=== PATIENT | female | born 1970 ===

== ENCOUNTER 2016-12-11 16:26 | Observation (INO) | payer BC ==
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
[2016-12-11 18:17] LABS: SQUAMOUS EPITHIAL 24 /hpf (0-5); URINE BACTERIA RARE (<OCC); URINE BILIRUBIN NEGATIVE (NEGATIVE); URINE BLOOD LARGE (NEGATIVE); URINE CLARITY CLOUDY (Clear); URINE COLOR YELLOW (YELLOW); URINE GLUCOSE (UA) NEG (Normal); URINE LEUKOCYTE ESTERASE TRACE Leu/uL (Negative); URINE NITRATE NEGATIVE (NEGATIVE); URINE PROTEIN 30 mg/dL (NEGATIVE); URINE UROBILINOGEN 0.2-1.0 mg/dL (0.2-1.0)
--- NOTE | 2016-12-11 18:48 | MRI ---
PROCEDURE: MRI Right Knee HISTORY: Pain. Right knee injury COMPARISON: No prior similar study available for comparison. TECHNIQUE: Multiecho multiplanar sequences were performed through the right knee. FINDINGS: ANTERIOR CRUCIATE LIGAMENT:: [id number] increased signal seen at the mid and femoral attachment of the ACL suggestive of [id number] sprain. POSTERIOR CRUCIATE LIGAMENT:: Intact. MEDIAL MENISCUS:: No evidence of significant tear. LATERAL MENISCUS:: There is complex tear involving the body and posterior horn of the lateral meniscus PE MEDIAL COLLATERAL LIGAMENT:: Mild grade 1 sprain of the MCL LATERAL COLLATERAL LIGAMENT COMPLEX:: Moderate grade 2-3 sprain of the LCL QUADRICEPS TENDON:: Intact. PATELLAR TENDON:: Intact. 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 There are moderate to large size foci of cartilage defects seen at the right knee more prominent at the medial and lateral femoral condyle P JOINT FLUID:: There is a moderate amount of right knee joint effusion. OSSEOUS STRUCTURES:: No evidence of bone marrow edema or bony lesion. Marginal osteophyte formation seen at the patella and in the femoral and tibial plateau suggestive of moderate osteoarthritis. OTHER FINDINGS: None. IMPRESSION: Mild ACL sprain. Moderate to large size lateral meniscus tear. Moderate amount of joint effusion. Moderate osteoarthritic changes. Patellar chondromalacia and multiple foci of cartilage defects likely due to a combination of prior trauma and osteoarthritis.
--- NOTE | 2016-12-11 19:32 | US ---
EXAM: US Duplex Right Lower Extremity Veins CLINICAL HISTORY: 46 years old, female; Pain; Leg, lower; Right; Additional info: Knee injury/brusing pain TECHNIQUE: Real-time ultrasound scan of the veins of the right lower extremity with color Doppler flow, spectral waveform analysis and compression. COMPARISON: No relevant prior studies available. FINDINGS: Real-time imaging shows veins with normal compressibility. Doppler evaluation shows normal venous flow with respiratory variation and augmentation with distal compression. Complex appearing fluid collection noted laterally at level of the knee measuring 3.9 x 2.3 cm. IMPRESSION: No evidence for deep venous thrombosis in the visualized veins. Complex appearing fluid collection noted laterally at level of the knee measuring 3.9 x 2.3 cm. Correlate clinically. Followup as warranted.
[2016-12-11 19:54] LABS: BASO % 0.9 % (0.0-2.0); EOS # 0.1 K/uL (0.0-0.7); EOS % 1.7 % (0.0-4.0); HEMOGLOBIN 13.6 g/dL (12.0-16.0); LYMPH # 1.2 K/uL (1.0-4.3); LYMPH % 25.2 % (20.0-40.0); MEAN CELL VOLUME 81.2 fl (81.0-99.0); MEAN CORPUSCULAR HEMOGLOBIN 25.7 pg (27.0-31.0); MEAN CORPUSCULAR HGB CONC 31.6 g/dL (33.0-37.0); MONO # 0.3 K/uL (0.0-0.8); MONO % 6.3 % (0.0-10.0); NEUT # 3.3 K/uL (1.8-7.0); NEUT % 65.9 % (50.0-75.0); RBC 5.28 Mil/uL (3.80-5.20); WHITE BLOOD COUNT 4.9 K/uL (4.8-10.8)
[2016-12-11 20:18] LABS: ALB/GLOB RATIO 1.3 (1.0-2.1); ALBUMIN 4.1 g/dL (3.5-5.0); ALT/SGPT 37 U/L (9-52); AST/SGOT 27 U/L (14-36); BLOOD UREA NITROGEN 15 mg/dl (7-17); CALCIUM 9.3 mg/dL (8.4-10.2); GFR AFRICAN-AMERICAN > 60; GFR NON-AFRICAN AMERICAN > 60
[2016-12-11 20:22] LABS: INR 1.2 (0.9-1.2); PARTIAL THROMBOPLASTIN TIME 35.5 Seconds (25.6-37.1); PROTHROMBIN TIME 12.4 Seconds (9.8-13.1)
[2016-12-11] MEDS ORDERED: Enoxaparin 40 mg Syringe SC ONE (22:00)
[2016-12-12 00:44] VITALS: O2SAT 98
[2016-12-12 08:30] VITALS: BP 134/83; PULSE 55; RESP 18; TEMP 97.8
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
[2016-12-12 13:46] LABS: FOLATE 9.4 ng/mL
== END 2016-12-12 13:12 | disposition home or self-care (01) ==
LOC: H.ER 16:26 → H.ERHOLD 17:27 → H.MEDSURG1 20:40
PROVIDERS: ADMIT Internal Medicine; ATTEND Internal Medicine
DX: S83.281A Other tear of lateral meniscus, current injury, right knee, initial encounter (principal); X58.XXXA Exposure to other specified factors, initial encounter; Y93.9 Activity, unspecified; Y92.814 Boat as the place of occurrence of the external cause; E66.9 Obesity, unspecified; Z98.84 Bariatric surgery status; Z68.36 Body mass index [BMI] 36.0-36.9, adult; M19.90 Unspecified osteoarthritis, unspecified site; M25.461 Effusion, right knee
CPT/HCPCS: 36415; 73721; 80053; 81003; 81025; 82607; 82746; 84443; 85025; 85610; 85730; 86039; 86430; 86617; 93971; 99284; G0378; J1650